=== PATIENT | male | born 1930 | race Asian ===

== ENCOUNTER 2018-09-15 09:02 | Emergency (ER) | payer MEDICARE ==
[2018-09-15] MEDS ORDERED: TETANUS/DIPHTHERIA TOXOID [ADULT] 0.5 ML VIAL IM ONE (09:35)
== END 2018-09-15 12:39 | disposition home or self-care (01) ==
LOC: EDH 09:02
DX: S01.111A Laceration without foreign body of right eyelid and periocular area, initial encounter (principal); I10 Essential (primary) hypertension; E78.5 Hyperlipidemia, unspecified; Z88.1 Allergy status to other antibiotic agents; Z98.890 Other specified postprocedural states; W06.XXXA Fall from bed, initial encounter; Y93.89 Activity, other specified; Y92.89 Other specified places as the place of occurrence of the external cause; Y99.8 Other external cause status
CPT/HCPCS: 12013; 70450; 72125; 90471; 90714

== ENCOUNTER 2018-09-20 09:43 | Emergency (ER) | payer MEDICARE | END 2018-09-20 09:58 | disposition home or self-care (01) | LOC: EDH 09:43 | DX: S05.41XD Penetrating wound of orbit with or without foreign body, right eye, subsequent encounter (principal); I10 Essential (primary) hypertension; E78.5 Hyperlipidemia, unspecified; Z88.1 Allergy status to other antibiotic agents; X58.XXXD Exposure to other specified factors, subsequent encounter | CPT/HCPCS: 99281 ==

== ENCOUNTER 2019-10-17 23:01 | Emergency (ER) | payer MEDICARE ==
[2019-10-17] MEDS ORDERED: TETANUS/DIPHTHERIA TOXOID [ADULT] 0.5 ML VIAL IM ONE (23:44)
== END 2019-10-18 01:18 | disposition home or self-care (01) ==
LOC: EDH 23:01
DX: S61.212A Laceration without foreign body of right middle finger without damage to nail, initial encounter (principal); I10 Essential (primary) hypertension; E78.5 Hyperlipidemia, unspecified; Z88.1 Allergy status to other antibiotic agents; W18.39XA Other fall on same level, initial encounter; Y93.89 Activity, other specified; Y92.098 Other place in other non-institutional residence as the place of occurrence of the external cause; Y99.8 Other external cause status
CPT/HCPCS: 12002; 73130; 90471; 90714

== ENCOUNTER 2019-11-01 10:00 | Emergency (ER) | payer MEDICARE | END 2019-11-01 11:04 | disposition home or self-care (01) | LOC: EDH 10:00 | DX: S61.212D Laceration without foreign body of right middle finger without damage to nail, subsequent encounter (principal); I10 Essential (primary) hypertension; E78.5 Hyperlipidemia, unspecified; Z88.1 Allergy status to other antibiotic agents; X58.XXXD Exposure to other specified factors, subsequent encounter | CPT/HCPCS: 99281 ==